=== PATIENT | female | born 1965 | race Caucasian/White ===

== ENCOUNTER → 2022-10-29 07:43 | Outpatient (CLI) | payer OTHER, SELFPAY ==
--- NOTE | 2022-10-29 | DI.NM.S_ITS ---
PROCEDURE: NM EXERCISE TREADMILL NON NUC COMPARISON: None INDICATIONS: PALPITATIONS/SHORTNESS OF BREATH FINDINGS: Rest ECG sinus rhythm. Resting blood pressure 132/94. Ty protocol 4:04, maximum heart rate 169 bpm (103% predicted), blood pressure 178/104, 7.0 METS, CHINEDU +35%. Stress ECG sinus tachycardia, no ST segment changes, occasional PVCs. The patient did not complain of exercise-induced chest pain. IMPRESSION: Low risk study. No evidence of exercise-induced ischemia or arrhythmia on ECG. Accelerated heart rate response. Normal blood pressure response. Poor exercise tolerance. Dictated by: Adriana Whitehead D.O. on 10/29/2022 at 12:47 Approved by: Adriana Whitehead D.O. on 10/29/2022 at 12:53
== END ==
PROVIDERS: PCP Internal Medicine; Referring Provider Internal Medicine Cardiovascular Disease; Visit Provider Internal Medicine Cardiovascular Disease
DX: R00.2 Palpitations (principal); R06.02 Shortness of breath
CPT/HCPCS: 93017